=== PATIENT | male | born 1965 | race Caucasian/White ===

== ENCOUNTER 2017-07-06 17:05 | Emergency (ER) | payer OTHER ==
--- NOTE | 2017-07-06 17:09 | PDOC ---
Rapid Medical Evaluation Chief Complaint: Eye Problem Time Seen by Provider: 07/06/17 17:07 Medical Evaluation: Allergies Allergy/AdvReac Type Severity Reaction Status Date / Time No Known Allergies Allergy Verified 07/06/17 17:07 07/06/17 17:07 I have performed a brief in-person evaluation of this patient. The patient presents with a chief complaint of: eye problem, given "eye cream" by ophtho MD casanova and has been using for 1 week Pertinent physical exam findings: erythema/swelling to L eye I have ordered the following: nothing The patient will proceed to the ED for further evaluation. Discharge Disposition - Diagnosis Eye problem - Referrals - Patient Instructions - Post Discharge Activity
[2017-07-06 17:11] VITALS: BP 147/80; PULSE 73; TEMP 97.8; BMI 29.9
--- NOTE | 2017-07-06 17:33 | PDOC ---
History of Present Illness - General Chief Complaint: Eye Problem Stated Complaint: EYE PROBLEM Time Seen by Provider: 07/06/17 17:07 History Source: Patient Exam Limitations: No Limitations - History of Present Illness Initial Comments: 07/06/17 18:01 52-year-old male presents to the ED with complaints of redness to the left eye which he states started approximately 5 days ago and was given an antibiotic ointment prescribed by his primary care physician. Patient states been using it once daily at night and states no improvement. Patient denies difficulty seeing , excessive tearing, or retro-orbital pressure. Patient also denies fever and chills. Patient states was rubbing the area initially a few days ago when symptoms began. 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 Timing/Duration: other Severity: mild Associated Symptoms: reports: denies symptoms Past History - Travel Traveled outside of the country in the last 30 days: No - Past Medical History Allergies/Adverse Reactions: Allergies Allergy/AdvReac Type Severity Reaction Status Date / Time No Known Allergies Allergy Verified 07/06/17 17:07 Home Medications: Ambulatory Orders Cyclobenzaprine HCl [Flexeril -] 10 mg PO TID #0 tablet 10/15/12 Dexamethasone [Decadron -] 4 mg PO TID #0 tablet 10/15/12 Lidocaine 5% Patch [Lidoderm -] 1 patch TP DAILY #0 patch 10/15/12 Pantoprazole Sodium [Protonix -] 40 mg PO DAILY #0 tablet.ec 10/15/12 Bacitracin Ophthalmic Oint - 0.5 inch OS TID #1 tube 07/06/17 Anemia: No Asthma: No Cancer: No Cardiac Disorders: No CVA: No COPD: No CHF: No Dementia: No Diabetes: No GI Disorders: No Disorders: No HTN: No Hypercholesterolemia: No Liver Disease: No Seizures: No Thyroid Disease: No - Surgical History Abdominal Surgery: No Appendectomy: No Cardiac Surgery: No Cholecystectomy: No Lung Surgery: No Neurologic Surgery: No Orthopedic Surgery: No - Immunization History Immunization Up to Date: Yes - Suicide/Smoking/Psychosocial Hx Smoking Status: No Smoking History: Never smoked Have you smoked in the past 12 months: No Number of Cigarettes Smoked Daily: 0 Information on smoking cessation initiated: No Hx Alcohol Use: No Drug/Substance Use Hx: No Substance Use Type: None Hx Substance Use Treatment: No Patient Lives Alone: No Lives with/in: spouse/SO Review of Systems - Review of Systems Able to Perform ROS?: No Constitutional: No: Symptoms Reported HEENTM: Yes: Eye Pain. No: Blurred Vision, Tearing Respiratory: No: Symptoms reported Cardiac (ROS): No: Symptoms Reported ABD/GI: No: Symptoms Reported : No: Symptoms Reported Musculoskeletal: No: Symptoms Reported Integumentary: No: Symptoms Reported Neurological: No: Symptoms reported *Physical Exam - Vital Signs Last Vital Signs Temp Pulse Resp BP Pulse Ox 97.8 F 73 16 147/80 98 07/06/17 17:07 07/06/17 17:07 07/06/17 17:07 07/06/17 17:07 07/06/17 17:07 - Physical Exam General Appearance: Yes: Nourished, Appropriately Dressed. No: Apparent Distress HEENT: positive: Other (left lower eyelid redness. < 0.25 cm superficial abrasion to the lid margin of the left lower eyelid) Integumentary: positive: Normal Color, Warm, Moist Neurologic: positive: Motor Strength 5/5 (ambulatory) Medical Decision Making - Medical Decision Making 07/06/17 18:25 Patient with injury to left lower eyelid for the past 5 days with minimal improvement utilizing topical antibiotic ointment prescribed by his PMD which patient is unable to recall the exact name. Patient on exam with noted < 0.25 cm. Superficial abrasion to the lid margin of the left lower eyelid. surrounding skin intact Bacitracin ointment ordered with supportive care instructions provided *DC/Admit/Observation/Transfer Diagnosis at time of Disposition: Eye problem Abrasion of eyelid, left Qualifiers: Encounter type: initial encounter Qualified Code(s): S00.212A - Abrasion of left eyelid and periocular area, initial encounter - Discharge Dispostion Disposition: HOME Condition at time of disposition: Good - Prescriptions Prescriptions: Bacitracin Ophthalmic Oint - 0.5 inch OS TID #1 tube - Referrals Referrals: Ramya Quintanilla MD [Primary Care Provider] - - Patient Instructions Printed Discharge Instructions: DI for Abrasion Additional Instructions: Please use antibiotic ointment as prescribed for the next 5 days. Please do not rub or touch area. If symptoms do not improve over the next 2-3 days please return to the ED as you may require an antibiotic by mouth along with topical antibiotic. - Post Discharge Activity
== END 2017-07-06 17:49 | disposition home or self-care (01) ==
LOC: JERFT 17:05
DX: S00.212A Abrasion of left eyelid and periocular area, initial encounter (principal); X58.XXXA Exposure to other specified factors, initial encounter; Y93.9 Activity, unspecified; Y92.89 Other specified places as the place of occurrence of the external cause; Y99.8 Other external cause status
CPT/HCPCS: 99281-25